=== PATIENT | male | born 1930 | race Caucasian/White ===

== ENCOUNTER 2017-12-17 12:35 | Inpatient (IN) | payer OTHER ==
[~2017-12-17] VITALS: Ht 175.3 cm; Wt 71.2 kg
--- NOTE | ~2017-12-17 | EKG ---
[address] [address] ELECTROCARDIOGRAM REPORT Name: ENE BUITRAGO Room #: 211-P ADM IN M.R.#: [id number] Admission: 12/18/17 Attend Phys: Zeb Jiménez MD Discharge: Date of : 31 Report #: [id number] THIS REPORT FOR: //name// [facility] Test Date: 2017-12-19 Test Time: 06:36:17 Pat Name: ENE BUITRAGO Department: Room: 211 P Gender: M Clearance Cutter: KEO : 1930 Requested By: Joshua Whiteside Order Number: [id number] MD: Joshua Whiteside Measurements Intervals [place] Rate: 91 P: 50 NE: 179 QRS: -85 QRSD: 126 T: 64 QT: 383 QTc: 472 Interpretive Statements Sinus rhythm RBBB and LAFB Baseline wander in lead(s) V2 Compared to ECG 10/23/2012 10:10:41 No significant change was found Electronically Signed On 12-19-2017 8:53:48 CDT by Joshua Whiteside [email or web address] <ELECTRONICALLY SIGNED> By: Joshua Whiteside MD, [facility] 12/19/17 0853 5 Joshua Whiteside MD, [facility] /EPI
--- NOTE | ~2017-12-17 | CATHLAB ---
[facility] [address] [place] [address] INVASIVE PROCEDURE REPORT Name: ENE BUITRAGO Room #: 211-P ADM IN ..#: [id number] Admission: 12/18/17 Attend Phys: Zeb Jiménez MD Discharge: Date of : 31 Date of Service: 12/18/17 1650 Report #: [id number] THIS REPORT FOR: //name// APPROVED REPORT Study performed: 12/18/2017 08:56:23 Patient Details Patient Status: In-Patient Room #: The patient is a 87 year-old male Event Personnel Joshua Whiteside Partner Marketing Manager, Herrera Manriquez RN, Mark Peters RN RN, Azra Diego Sandifer, David Monitor Procedures Performed Coronary Angiography Only [id number] CORANG BHARATHI Place w/wo Plasty Single ERNA [id number] Indication Non-STEMI (>12 hrs to = 24 hrs), Chest pain Procedure Narrative The Right Groin^ was infiltrated with 1% Lidocaine subcutaneous anesthesia. A PINNACLE 6FR Sheath #[id number] sheath was inserted into the RFA^. Coronary angiography was performed using coronary diagnostic catheters. The right coronary system was accessed and visualized with a JR4 catheter. The left coronary system was accessed and visualized with a 6FR JL 3.5 #[id number] catheter. Closure device was deployed with a 6 Fr MYNXGRIP 6/7F #[id number]. The patient tolerated the procedure well and there were no complications associated with the procedure. There was no hematoma. Intraoperative Conscious Sedation Sedation start time: 8.59 Case end Time: 9.52 Fentanyl 100 mcg Versed 3 mg Fluoro Time: 1344.00 minutes Dose: DAP 9552 cGycm2 1344 mGy Contrast Type and Amount: Visipaque 150 ml Coronary Angiography The patient's coronary anatomy is right dominant. [facility] [address] [place] [address] INVASIVE PROCEDURE REPORT Name: IFTIKHARENE Room #: 211-P ADM IN M.R.#: [id number] Admission: 12/18/17 Attend Phys: Zeb Jiménez MD Discharge: Date of : 31 Date of Service: 12/18/17 1650 Report #: [id number] Diagnostic Cath Left Main Normal left main LAD The LAD was not a particularly large vessel that extended to the distal anterior wall. Mild 30-40% mid vessel plaquing Diagonal 1 The first diagonal branch, which was larger than the LAD itself, exhibited a 30-40% proximal stenoses Circumflex The circumflex was moderate in size and nondominant OM1 The first marginal branch was moderate in size and exhibited a fairly long 50% mid vessel stenosis OM2 There was a terminal, second marginal branch that was very small in caliber, mild plaquing Right Coronary The right coronary was quite large and dominant. Mild distal plaquing R PDA The posterior descending was moderate in size with a 50% mid vessel stenosis RPLV The posterior lateral branch exhibited a long variable 75-90% stenosis Left Ventriculography Left Ventriculography was not performed. Hemodynamics The aortic pressure is 138/79 mmHg with a mean of 67 mmHg. PCI Technique Lesion Anticoagulation was achieved with Heparin, Integrilin. Patient was preloaded with Plavix. Percutaneous coronary intervention was performed on the mid posterolateral branch. The lesion stenosis prior to intervention was 95% with HARMONY 3 flow. A LAUNCHER 6FR JR 4 #[id number] Guide Catheter was used to engage the right coronary ostium. A Luge Wire .014 x 182CM #[id number] Interventional Guidewire was used to cross the lesion. BALLOON DILATION A Balloon catheter Euphora RX 2.0 x 15 #[id number] was inserted and inflated up to 14.00atm for 30seconds. Additional Inflation: 15.00atm for 33seconds. STENT DEPLOYMENT A drug-eluting stent RESOLUTE RX 2.5 X 26 #[id number] was inserted and inflated up to 14.00atm for 27seconds. Repeat angiography revealed the following post-stent deployment results: no residual stenosis. POST STENT DEPLOYMENT BALLOON DILATION [facility] [address] [place] [address] INVASIVE PROCEDURE REPORT Name: ENE BUITRAGO Room #: 211-P ADM IN .R.#: [id number] Admission: 12/18/17 Attend Phys: Zeb Jiménez MD Discharge: Date of : 31 Date of Service: 12/18/17 1650 Report #: [id number] A Balloon catheter TREK NC RX 2.5 X 15 #[id number] was inserted and inflated up to 15.00atm for 35seconds. Additional Inflation: 22.00atm for 25seconds. Final angiography reveals 0 % stenosis with HARMONY 3 flow. Conclusion 1. Normal left main 2. Mild to moderate LAD and circumflex disease 3. RCA dominant. Severe mid PL branch disease successfully stented with 2.5 x 26mm Resolute medicated stent Recommendations Daily ASA with Plavix for at least one year Cardiac Rehabilitation Referral [facility] <ELECTRONICALLY SIGNED> By: Joshua Whiteside MD, FAC 12/18/171649 49 49 Joshua Whiteside MD, FACC /INF
--- NOTE | ~2017-12-17 | EKG ---
[address] [place] [address] ELECTROCARDIOGRAM REPORT Name: ENE BUITRAGO Room #: 211-P ADM IN M.R.#: [id number] Admission: 12/18/17 Attend Phys: Zeb Jiménez MD Discharge: Date of : 31 Report #: [id number] THIS REPORT FOR: //name// [facility] Test Date: 2017-12-18 Test Time: 12:06:06 Pat Name: ENE BUITRAGO Department: Room: 451 P Gender: M Doctorate Of Chiropractic: Kamini CALDERON : 1930 Requested By: Joshua Whiteside Order Number: [id number] MD: Joshua Whiteside Measurements Intervals [place] Rate: 79 P: 63 ND: 175 QRS: -83 QRSD: 125 T: 35 QT: 399 QTc: 458 Interpretive Statements Sinus rhythm RBBB and LAFB Compared to ECG 10/23/2012 10:10:41 No significant change was found Electronically Signed On 12-19-2017 8:46:38 CDT by Joshua Whiteside [email or web address] <ELECTRONICALLY SIGNED> By: Joshua Whiteside MD, [facility] 12/19/17 0846 1206 120 Joshua Whiteside MD, [facility] /EPI
--- NOTE | ~2017-12-17 | EKG ---
[address] [place] [address] ELECTROCARDIOGRAM REPORT Name: ENE BUITRAGO Room #: 211-P ADM IN M.R.#: [id number] Admission: 12/18/17 Attend Phys: Zeb Jiménez MD Discharge: Date of : 31 Report #: [id number] THIS REPORT FOR: //name// [facility] ED Test Date: 2017-12-17 Test Time: 12:37:24 Pat Name: ENE BUITRAGO Department: Room: Gender: M Adoption Coordinator: HUSSEIN : 1930 Requested By: Maurice Ovalle Order Number: [id number] MD: Joshua Whiteside Measurements Intervals [place] Rate: 88 P: 38 CO: 158 QRS: -101 QRSD: 124 T: 23 QT: 376 QTc: 455 Interpretive Statements Sinus rhythm RBBB and LAFB Compared to ECG 10/23/2012 10:10:41 No significant change was found Electronically Signed On 12-19-2017 8:27:53 CDT by Joshua Whiteside [email or web address] <ELECTRONICALLY SIGNED> By: Joshua Whiteside MD, [facility] 12/19/17 0827 D: 07/1236 123 Joshua Whiteside MD, FACC /EPI
[~2017-12-17 12:35] MED LIST: ACETAMINOPHEN325 M1 PO; AMARYL2 MG PO; ASPIRIN EC81 M1 PO; AUGMENTIN 875875 MG PO; CARVEDILOL3.125 MG PO; CIPROFLOXACIN500 M1 PO; CRESTOR10 MG PO; FISH OIL + D31 EACH PO; JANUVIA100 MG PO; JANUVIA25 MG PO; KEFLEX500 MG PO; LIPITOR; LISINOPRIL5 MG PO; MAGNESIUM400 MG PO; NITROGLYCERIN0.4 MG SL; NORCO 5-325 TA1 EACH PO; PLAVIX 75 MG TA75 M1 PO; RAPAFLO4 MG PO; RAPAFLO8 MG PO; ZEGERID 20 MG1 EACH PO; [UNRECOGNIZED DRUG - OTHER]
[2017-12-17 12:39] VITALS: BP 122/73
[2017-12-17 13:00] LABS: ABSOLUTE NEUTROPHILS 4.6 thou/uL (1.4-8.2); BASOPHILS 0.6 % (0.0-2.0); HEMATOCRIT 42.4 % (42.0-52.0); HEMOGLOBIN 14.4 gm/dL (14.0-18.0); LYMPHOCYTES 27.4 % (24.0-44.0); MCH 29.5 pg (26.0-34.0); MCV 86.7 fL (80.0-100.0); MONOCYTES 8.8 % (1.0-8.0); PLATELET COUNT 156 thou/uL (150-400); POLYS 60.2 % (36.0-66.0); RDW 15.3 % (10.5-14.5); WBC 7.6 thou/uL (4.0-11.0)
[2017-12-17 13:04] LABS: ANION GAP 10 mmol/L (7-16); BUN 31 mg/dL (7-18); CHLORIDE 104 mmol/L (98-107); CO2 26 mmol/L (21-32); GLUCOSE 181 mg/dL (74-106); POTASSIUM 4.2 mmol/L (3.5-5.1); SODIUM 140 mmol/L (136-145)
[2017-12-17 13:14] LABS: TROPONIN-I <0.06 ng/mL (<0.06)
[2017-12-17 15:03] VITALS: BP 154/78
[2017-12-17 15:42] VITALS: BP 145/83
[2017-12-17 19:44] VITALS: BP 154/83
[2017-12-18] VITALS (8 sets, daily range): BP systolic 105–138; BP diastolic 57–83
[2017-12-18 06:23] LABS: CALCIUM 9.2 mg/dL (8.5-10.1); CREATININE 1.8 mg/dL (0.7-1.3); MAGNESIUM 1.8 mg/dL (1.8-2.4); POTASSIUM 4.2 mmol/L (3.5-5.1)
[2017-12-18 06:30] LABS: TROPONIN-I 7.06 ng/mL (<0.06)
[2017-12-18 07:28] LABS: CHOLESTEROL 273 mg/dL (<200); HDL CHOLESTEROL 39 mg/dL (>40); LDL CHOLESTEROL 171 mg/dL (<100); TRIGLYCERIDE 316 mg/dL (<150); VLDL 63 mg/dL (<40)
[2017-12-18] MEDS ORDERED: CLOPIDOGREL75 MG PO (16:50)
[2017-12-19 04:01] LABS: HEMATOCRIT 42.3 % (42.0-52.0); HEMOGLOBIN 14.2 gm/dL (14.0-18.0); MCH 28.9 pg (26.0-34.0); MCHC 33.5 g/dL (28.0-37.0); MCV 86.2 fL (80.0-100.0); RBC 4.91 mil/uL (4.50-6.00); RDW 15.9 % (10.5-14.5); WBC 8.2 thou/uL (4.0-11.0)
[2017-12-19 04:05] LABS: ALBUMIN 3.4 g/dL (3.4-5.0); CREATININE 1.8 mg/dL (0.7-1.3); POTASSIUM 3.8 mmol/L (3.5-5.1); TOTAL BILIRUBIN 1.3 mg/dL (<0.1-1.0); TOTAL PROTEIN 6.8 g/dL (6.4-8.2)
[2017-12-19 04:29] LABS: TROPONIN-I 5.84 ng/mL (<0.06)
[2017-12-19 04:43] VITALS: BP 132/56
[2017-12-19 08:04] VITALS: BP 137/76
[2017-12-19 11:24] VITALS: BP 112/76
[2017-12-19 12:17] VITALS: BP 137/76
[2017-12-19] MEDS ORDERED: METOPROLOL SUCC25 M1 PO (12:30)
[2017-12-19] MEDS ORDERED: NITROGLYCERIN0.4 MG SUBLING (12:31)
[2017-12-19 14:48] VITALS: BP 137/76
== END 2017-12-19 14:15 | disposition home health service (06) | DRG 246 ==
LOC: ER 12:35 → EROBS 13:57 → 4W 15:21 → 2N 12-18 08:00 → ENTRNSPT 12-19 14:10 → EDTRNSPTSTS 12-19 14:12 → 2N 12-19 14:15
PROVIDERS: Emergency Medicine; Internal Medicine; Nurse Practitioner
PROC: 027034Z Dilation of Coronary Artery, One Artery with Drug-eluting Intraluminal Device, Percutaneous Approach (ICD-10-PCS; principal; 2017-12-18)
PROC: B211YZZ Fluoroscopy of Multiple Coronary Arteries using Other Contrast (ICD-10-PCS; principal; 2017-12-18)
PROC: 4A023N7 Measurement of Cardiac Sampling and Pressure, Left Heart, Percutaneous Approach (ICD-10-PCS; principal; 2017-12-18)
DX: I21.4 Non-ST elevation (NSTEMI) myocardial infarction (principal); E43 Unspecified severe protein-calorie malnutrition; E78.00 Pure hypercholesterolemia, unspecified; G89.29 Other chronic pain; M54.9 Dorsalgia, unspecified; K21.9 Gastro-esophageal reflux disease without esophagitis; M54.10 Radiculopathy, site unspecified; E78.5 Hyperlipidemia, unspecified; N18.9 Chronic kidney disease, unspecified; R63.4 Abnormal weight loss; I12.9 Hypertensive chronic kidney disease with stage 1 through stage 4 chronic kidney disease, or unspecified chronic kidney disease; N40.0 Benign prostatic hyperplasia without lower urinary tract symptoms; M62.84 Sarcopenia; F32.9 Major depressive disorder, single episode, unspecified; E11.22 Type 2 diabetes mellitus with diabetic chronic kidney disease; I20.9 Angina pectoris, unspecified; Z79.82 Long term (current) use of aspirin; Z79.899 Other long term (current) drug therapy; Z68.23 Body mass index [BMI] 23.0-23.9, adult; Z88.8 Allergy status to other drugs, medicaments and biological substances; Z98.49 Cataract extraction status, unspecified eye; Z87.891 Personal history of nicotine dependence
CPT/HCPCS: 10081

== ENCOUNTER → 2018-04-16 | Outpatient (CLI) | payer OTHER ==
[~2018-04-16] MED LIST changes: +CLOPIDOGREL75 MG PO; +METOPROLOL SUCC25 M1 PO; +NITROGLYCERIN0.4 MG SUBLING
== END ==
LOC: CAT 14:04 → MRI 14:04
DX: R42 Dizziness and giddiness (principal); R51 Headache

== ENCOUNTER 2018-11-30 15:00 | Inpatient (IN) | payer OTHER ==
[~2018-11-30] VITALS: Ht 175.3 cm; Wt 77.6 kg
[~2018-11-30 15:00] MED LIST changes: +JANUVIA 50 MG T50 MG PO; -JANUVIA100 MG PO
[2018-11-30 15:04] VITALS: BP 160/80
[2018-11-30 15:38] LABS: ABSOLUTE NEUTROPHILS 3.6 thou/uL (1.4-8.2); BASOPHILS 0.4 % (0.0-2.0); EOSINOPHILS 2.1 % (0.0-3.0); HEMOGLOBIN 14.3 gm/dL (14.0-18.0); LYMPHOCYTES 21.3 % (24.0-44.0); MCH 28.4 pg (26.0-34.0); MCHC 33.3 g/dL (28.0-37.0); MCV 85.4 fL (80.0-100.0); MONOCYTES 7.1 % (1.0-8.0); PLATELET COUNT 134 thou/uL (150-400); POLYS 69.1 % (36.0-66.0); RBC 5.04 mil/uL (4.50-6.00); RDW 14.8 % (10.5-14.5); WBC 5.2 thou/uL (4.0-11.0)
[2018-11-30 15:47] LABS: ANION GAP 13 mmol/L (7-16); BUN 19 mg/dL (7-18); CHLORIDE 104 mmol/L (98-107); CO2 22 mmol/L (21-32); CREATININE 1.9 mg/dL (0.7-1.3); GLUCOSE 231 mg/dL (74-106); SODIUM 139 mmol/L (136-145)
[2018-11-30 15:57] LABS: ALBUMIN 3.6 g/dL (3.4-5.0); LIPASE 101 U/L (73-393); SGOT 13 U/L (15-37); SGPT 16 U/L (30-65); TOTAL BILIRUBIN 0.8 mg/dL (<0.1-1.0); TOTAL PROTEIN 6.9 g/dL (6.4-8.2); TROPONIN-I <0.06 ng/mL (<0.06)
[2018-11-30 16:56] LABS: URINE BILIRUBIN NEGATIVE (Negative); URINE BLOOD NEGATIVE (Negative); URINE CLARITY CLEAR; URINE COLOR YELLOW; URINE GLUCOSE-RANDOM* 1+ (Negative); URINE KETONES NEGATIVE (Negative); URINE LEUKOCYTES-REFLEX NEGATIVE (Negative); URINE NITRITE-REFLEX NEGATIVE (Negative); URINE PROTEIN (DIPSTICK) 2+ (Negative); URINE UROBILINOGEN 0.2 E.U./dl (0.2-1.0)
[2018-11-30 17:06] LABS: CASTS None Seen /LPF (None Seen); CRYSTALS None Seen /LPF (None Seen); SQUAMOUS None Seen /LPF (0-3); URINE WBC-REFLEX 0-5 Rare /HPF (0-5)
[2018-11-30 17:07] LABS: BACTERIA-REFLEX 1-9 Few /HPF (None Seen); URINE RBC None Seen /HPF (0-2)
[2018-11-30 18:04] VITALS: BP 160/85
--- NOTE | 2018-11-30 19:39 | NUR ---
88 YO MALE ADMITTED TO 430 BY CART FROM ER. A&OX4, IV INFUSING NS IN L HAND. SPOUSE AT BEDSIDE. ORIENTED PT TO ROOM CALL LIGHT.
[2018-11-30] MEDS ORDERED: SERTRALINE HCL50 MG PO (20:48)
[2018-11-30] MEDS ORDERED: REPATHA PU420 MG/3.5 SUBQ (20:50)
[2018-11-30] MEDS ORDERED: ARICEPT 5 MG TAB5 MG PO (20:51)
[2018-11-30 21:20] VITALS: BP 148/86
[2018-12-01 04:45] VITALS: BP 150/66
--- NOTE | 2018-12-01 04:51 | NUR ---
ASSUMED CARE AT 1900, PT HAD ARRIVED TO UNIT AROUND 1830, COMPLETED ADMISSION AND ASSESSMENT; CONSENTS SIGNED, REVIEWED MEDICATIONS WITH PT'S BEFORE SHE LEFT. SHE REPORTS HE HAS NOT TAKEN ANY OF HIS MEDICATIONS IN FOUR DAYS, NO CLEAR REASON GIVEN OTHER THAN PT "DIDN'T WANT TO." SHE REPORTS MAKING HIM TAKE HIS JANUVIA IN THE AM, BUT OTHERWISE NO MEDS FOR FOUR DAYS. PT IS A&Ox3 AND FORGETFUL, HISTORY OF DEMENTIA, STRUGGLES TO REMEMBER NAMES OF MEDICATIONS, MEDICAL HISTORY, ETC; HAS ANXIOUS PERSONALITY. SKIN IN GOOD CONDITION. PT REPORTS HAVING AN IMPLANTED NEUROSTIMULATOR IN LEFT BACK. DENIES PAIN OR SOB. PRIMARY COMPLAINT IS FEELING VERY DIZZY, WORSE WITH STANDING, AND VISIBLY WEAVES WHEN STANDING AT BEDSIDE TO USE URINAL; HAD N/V AT HOME WITH THE SEVERE DIZZINESS, BUT DENIES NAUSEA HERE. HAS FREQUENCY AND HESITATION WITH URINATION, GOES ABOUT 150-200 ML EACH TIME. FALL PRECAUTIONS IN PLACE. IV FLUIDS INFUSING. GIVEN A DOSE OF MECLIZINE FOR THE DIZZINESS, OBTAINED ORDER FOR MELATONIN TO HELP PT SLEEP; HE REPORTS TAKING AMBIEN AT HOME, BUT THERE IS NO RECORD OF HIM HAVING A PRESCRIPTION FOR THIS. NO OTHER CONCERNS, WILL CONTINUE TO MONITOR.
[2018-12-01 07:11] VITALS: BP 146/66
--- NOTE | 2018-12-01 12:31 | NUR ---
ASSESSMENT-PT LIVES AT HOME WITH HIS WHO IS YOUNGER THAN HE BUT USES A CANE OR A WALKER TO GET AROUND. 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 THEY HAVE A CLEANING PERSON THAT COMES 1-2X WEEKLY AND ALSO DOES THE LAUNDRY. PT DRIVES. THEY HAVE 2 SONS IN THE AREA AND A DTR IN [place]. HAS HAD VNA IN THE PAST BUT HE DENIES ANY HH SERVICES. FOLLOWING TO ASSIST WITH DC PLANNING.
--- NOTE | 2018-12-01 12:52 | EKG ---
[address] [place] [address] ELECTROCARDIOGRAM REPORT Name: ENE BUITRAGO Room #: 430-P ADM IN M.R.#: [id number] ������������������ Admission: 11/30/18 ������������������ Attend Phys: Dragan Clarke MD Discharge: ������������������ Date of : 31 Report #: [id number] ����������������������������������������������������������������� [id number] THIS REPORT FOR: //name// [facility] ED Test Date: 2018-11-30 Test Time: 15:27:40 Pat Name: ENE BUITRAGO Department: Room: 430 Gender: M Ironer Hand: ale : 1930 Requested By: Kandace Romano Order Number: [id number] MD: Joshua Whiteside Measurements Intervals [place] Rate: 72 P: 43 IN: 184 QRS: -68 QRSD: 133 T: 10 QT: 431 QTc: 472 Interpretive Statements Sinus rhythm RBBB and LAFB Compared to ECG 12/19/2017 06:36:17 No significant changes Electronically Signed On 12-01-2018 12:52:08 CDT by Joshua Whiteside [email or web address] ��������������������������������������������� <ELECTRONICALLY SIGNED> ���������������������������������������� By: Joshua Whiteside MD, [facility] ��������������������������������������������� 12/01/18 1252 1527 1527 Joshua Whiteside MD, FACC /EPI
[2018-12-01] MEDS ORDERED: FLOMAX0.4 MG PO (14:55)
--- NOTE | 2018-12-01 15:34 | NUR ---
PT A&OX4, AMBULATES WITH ASSIST X1 AND WALKER. PT HAD VERTIGO THIS AM AND PT WORKED WITH PT TO RELEIVE SYMPTOMS. CALLS OUT APPROP, BED AND CHAIR ALARMS ON AT ALL TIMES.WILL CONT POC.
[2018-12-01 15:59] VITALS: BP 106/50
[2018-12-01 19:42] VITALS: BP 117/56
--- NOTE | 2018-12-02 04:29 | NUR ---
PT ALERT/ORIENTED X4, UP WITH ASSIST X1, GAIT A LITTLE UNSTEADY, STILL HIGH FALL RISK DUE TO VERTIGO WHICH HE DENIES ALL NOC, CONTINUE ON MECLIZINE, SKIN INTACT, IVF INFUSING, IV PATENT, MONITORED, BED ALARM ON, FALL BUNDLE ON, MONITORED.
[2018-12-02 04:40] VITALS: BP 126/50
[2018-12-02 05:36] LABS: CALCIUM 8.8 mg/dL (8.5-10.1); CREATININE 2.1 mg/dL (0.7-1.3); MAGNESIUM 1.8 mg/dL (1.8-2.4); POTASSIUM 3.9 mmol/L (3.5-5.1)
[2018-12-02 09:42] VITALS: BP 133/70
--- NOTE | 2018-12-02 10:25 | NUR ---
PT UP WALKING WITH THERAPY STEADY GAIT. NO DIZZINESS NOTED. PT STATES NO PAIN. PT ATE GOOD BREAKFAST. PLEASANT AND COOPERATIVE WITH CARE, POSSIBLE DISCHARGE TODAY.
[2018-12-02 10:38] VITALS: BP 133/70
--- NOTE | 2018-12-02 11:54 | NUR ---
Pt dcing home today via family car. Outpt vestibular therapy recommended and the pt would like to do that here. Referral called to the outpt therapy dept and facesheet and script faxed. They will try to call him to schedule his eval or he may call them to schedule. No other cm interventions indicated.
[2018-12-02 12:02] VITALS: BP 133/70
--- NOTE | 2018-12-02 12:13 | NUR ---
PATIENT TO DISCHARGE TODAY IV ACSESS DCD. ALL BELONGINGS TO BE PACKED AND SENT WITH PATIENT.
[2018-12-02] MEDS ORDERED: MELATONIN5 M1 PO (12:26)
[2018-12-02] MEDS ORDERED: ANTIVERT25 MG PO (12:26)
[2018-12-02 12:42] VITALS: BP 133/70
[2018-12-02 13:50] VITALS: BP 133/70
--- NOTE | 2018-12-02 13:51 | NUR ---
PATIENT DISCHARGED VIA W/C TO FAMILY CAR. DISCHARGE PAPERS GONE OVER SIGNED, COPY IN CHART. SPOUSE AND FAMILY HERE MALE FAMILY MEMBER PACING MACIAS. STATED DOCTOR CALLED 2 HOURS AGO SAID HE WAS DISCHARGING EXPLAINED DOCTOR HAD TO PUT ORDERS IN CHART AND WRITE RX'S. ALSO WAITING ON VOLUNTEER TO TRANSPORT TO MAIN ENTRANCE.
== END 2018-12-02 13:45 | disposition home or self-care (01) | DRG 149 ==
LOC: ER 15:00 → 4E 17:58 → EROBS 17:58 → 4E 18:01 → ENTRNSPT 12-02 13:36 → EDTRNSPTSTS 12-02 13:38 → 4E 12-02 13:45
PROVIDERS: Physician Assistant; ADMIT Internal Medicine
DX: R42 Dizziness and giddiness (principal); E78.5 Hyperlipidemia, unspecified; K21.9 Gastro-esophageal reflux disease without esophagitis; M54.5 Low back pain; G89.29 Other chronic pain; N18.9 Chronic kidney disease, unspecified; N40.0 Benign prostatic hyperplasia without lower urinary tract symptoms; F32.9 Major depressive disorder, single episode, unspecified; I12.9 Hypertensive chronic kidney disease with stage 1 through stage 4 chronic kidney disease, or unspecified chronic kidney disease; E11.9 Type 2 diabetes mellitus without complications; E86.0 Dehydration; F03.90 Unspecified dementia, unspecified severity, without behavioral disturbance, psychotic disturbance, mood disturbance, and anxiety; Z96.652 Presence of left artificial knee joint; Z98.42 Cataract extraction status, left eye; Z98.41 Cataract extraction status, right eye; Z79.02 Long term (current) use of antithrombotics/antiplatelets; Z79.82 Long term (current) use of aspirin; Z79.899 Other long term (current) drug therapy; Z88.8 Allergy status to other drugs, medicaments and biological substances; I25.2 Old myocardial infarction
CPT/HCPCS: 10084

== ENCOUNTER 2019-04-30 04:06 | Emergency (ER) | payer OTHER ==
[~2019-04-30] VITALS: Ht 170.2 cm; Wt 77.1 kg
[~2019-04-30 04:06] MED LIST changes: +ANTIVERT25 MG PO; +ARICEPT 5 MG TAB5 MG PO; +FLOMAX0.4 MG PO; +MELATONIN5 M1 PO; +REPATHA PU420 MG/3.5 SUBQ; +SERTRALINE HCL50 MG PO
[2019-04-30 04:43] LABS: ABSOLUTE NEUTROPHILS 4.8 thou/uL (1.4-8.2); BASOPHILS 0.5 % (0.0-2.0); EOSINOPHILS 5.6 % (0.0-3.0); HEMATOCRIT 45.5 % (42.0-52.0); HEMOGLOBIN 15.2 gm/dL (14.0-18.0); LYMPHOCYTES 12.7 % (24.0-44.0); MCH 28.6 pg (26.0-34.0); MCHC 33.5 g/dL (28.0-37.0); MCV 85.5 fL (80.0-100.0); MONOCYTES 10.3 % (1.0-8.0); PLATELET COUNT 96 thou/uL (150-400); POLYS 70.9 % (36.0-66.0); RBC 5.33 mil/uL (4.50-6.00); RDW 15.3 % (10.5-14.5); WBC 6.7 thou/uL (4.0-11.0)
[2019-04-30 04:52] LABS: ANION GAP 13 mmol/L (7-16); BUN 22 mg/dL (7-18); CALCIUM 9.3 mg/dL (8.5-10.1); CHLORIDE 96 mmol/L (98-107); CO2 22 mmol/L (21-32); CREATININE 1.9 mg/dL (0.7-1.3); GLUCOSE 174 mg/dL (74-106); POTASSIUM 4.1 mmol/L (3.5-5.1); SODIUM 131 mmol/L (136-145)
[2019-04-30 05:01] LABS: MAGNESIUM 1.8 mg/dL (1.8-2.4); TROPONIN-I <0.06 ng/mL (<0.06)
[2019-04-30 05:02] LABS: URINE BILIRUBIN NEGATIVE (Negative); URINE BLOOD TRACE (Negative); URINE CLARITY CLEAR; URINE COLOR YELLOW; URINE GLUCOSE-RANDOM* NEGATIVE (Negative); URINE KETONES NEGATIVE (Negative); URINE LEUKOCYTES-REFLEX NEGATIVE (Negative); URINE NITRITE-REFLEX NEGATIVE (Negative); URINE PROTEIN (DIPSTICK) 2+ (Negative); URINE SPECIFIC GRAVITY >= 1.030 (1.005-1.035)
[2019-04-30 05:21] LABS: BACTERIA-REFLEX 1-9 Few /HPF (None Seen); CELLULAR CASTS 0-3 Few /LPF (None Seen); CRYSTALS None Seen /LPF (None Seen); HYALINE CASTS 0-3 Few /LPF (None Seen); MUCUS 4-6 Moderate strn/LPF (None Seen); SQUAMOUS 0-3 Few /LPF (0-3); URINE RBC 0-2 Rare /HPF (0-2); URINE WBC-REFLEX 0-5 Rare /HPF (0-5)
[2019-04-30 07:09] VITALS: BP 114/53
--- NOTE | 2019-04-30 13:07 | EKG ---
[place] [address] [facility] [address] [place] [address] ELECTROCARDIOGRAM REPORT Name: ENE BUITRAGO Room #: DEP GIACOMO Barone#: [id number] Admission: 04/30/19 Attend Phys: Discharge: 04/30/19 Date of : 31 Report #: [id number] THIS REPORT FOR: //name// [facility] ED Test Date: 2019-04-30 Test Time: 04:20:43 Pat Name: ENE BUITRAGO Department: Room: Gender: Lawyer Real Estate: STOLED : 1930 Requested By: Maurice Mayorga Order Number: [id number] MD: Joshua Whiteside Measurements Intervals [place] Rate: 102 P: 42 MD: 177 QRS: -83 QRSD: 123 T: 46 QT: 356 QTc: 464 Interpretive Statements Sinus tachycardia Right bundle branch block Inferior infarct, old Compared to ECG 11/30/2018 15:27:40 No significant change was found Electronically Signed On 04-30-2019 13:06:51 COUNTY CORONER by Joshua Whiteside [email or web address] <ELECTRONICALLY SIGNED> By: Joshua Whiteside MD, [facility] 04/30/19 1306 0420 0420 Joshua Whiteside MD, FACC /EPI
== END 2019-04-30 07:10 | disposition home or self-care (01) ==
LOC: ER 04:06
PROVIDERS: Emergency Medicine
DX: R41.0 Disorientation, unspecified (principal); E78.5 Hyperlipidemia, unspecified; K21.9 Gastro-esophageal reflux disease without esophagitis; E11.9 Type 2 diabetes mellitus without complications; G89.29 Other chronic pain; Z88.8 Allergy status to other drugs, medicaments and biological substances; Z79.899 Other long term (current) drug therapy; Z98.890 Other specified postprocedural states; Z96.652 Presence of left artificial knee joint

== ENCOUNTER 2019-06-06 17:31 | Emergency (ER) | payer OTHER ==
[~2019-06-06] VITALS: Ht 175.3 cm; Wt 72.6 kg
[2019-06-06 18:00] LABS: ABSOLUTE NEUTROPHILS 3.8 thou/uL (1.4-8.2); BASOPHILS 0.6 % (0.0-2.0); EOSINOPHILS 3.1 % (0.0-3.0); HEMATOCRIT 41.3 % (42.0-52.0); HEMOGLOBIN 13.6 gm/dL (14.0-18.0); LYMPHOCYTES 29.3 % (24.0-44.0); MCH 28.4 pg (26.0-34.0); MCHC 33.1 g/dL (28.0-37.0); MCV 85.8 fL (80.0-100.0); MONOCYTES 9.3 % (1.0-8.0); PLATELET COUNT 167 thou/uL (150-400); POLYS 57.7 % (36.0-66.0); RBC 4.81 mil/uL (4.50-6.00); RDW 16.4 % (10.5-14.5); WBC 6.6 thou/uL (4.0-11.0)
[2019-06-06 18:16] LABS: ANION GAP 14 mmol/L (7-16); BUN 25 mg/dL (7-18); CALCIUM 9.8 mg/dL (8.5-10.1); CHLORIDE 106 mmol/L (98-107); CO2 22 mmol/L (21-32); GLUCOSE 143 mg/dL (74-106); POTASSIUM 4.1 mmol/L (3.5-5.1); SODIUM 142 mmol/L (136-145)
[2019-06-06 18:25] LABS: ALBUMIN 3.7 g/dL (3.4-5.0); DIRECT BILIRUBIN 0.1 mg/dL (<0.1-0.2); TOTAL BILIRUBIN 0.9 mg/dL (<0.1-1.0); TOTAL PROTEIN 7.3 g/dL (6.4-8.2); TROPONIN-I <0.06 ng/mL (<0.06)
[2019-06-06 18:36] LABS: SGPT 19 U/L (30-65)
[2019-06-06 18:57] LABS: SGOT < 5 U/L (15-37)
[2019-06-06 19:19] VITALS: BP 132/79
--- NOTE | 2019-06-07 10:18 | EKG ---
[facility] [address] [facility] [place] [address] ELECTROCARDIOGRAM REPORT Name: ENE BUITRAGO Room #: DEP GIACOMO Barone#: [id number] Admission: 06/06/19 Attend Phys: Discharge: 06/06/19 Date of : 31 Report #: [id number] THIS REPORT FOR: //name// [facility] ED Test Date: 2019-06-06 Test Time: 17:29:11 Pat Name: ENE BUITRAGO Department: Room: Gender: Certified Master Safe Technician[facility] 1930 Requested By: Maria Elena Su Order Number: [id number] MD: Joshua Whiteside Measurements Intervals [place] Rate: 80 P: 70 RI: 168 QRS: -74 QRSD: 129 T: 45 QT: 404 QTc: 466 Interpretive Statements Sinus rhythm RBBB and LAFB Compared to ECG 04/30/2019 04:20:43 No significant change was found Electronically Signed On 06-07-2019 10:17:47 SHEET METAL MECHANIC by Joshua Whiteside [email or web address] <ELECTRONICALLY SIGNED> By: Joshua Whiteside MD, [facility] 06/07/19 1017 1729 1729 Joshua Whiteside MD, FACC /EPI
== END 2019-06-06 19:23 | disposition home or self-care (01) ==
LOC: ER 17:31
PROVIDERS: Emergency Medicine
DX: R07.9 Chest pain, unspecified (principal); I25.10 Atherosclerotic heart disease of native coronary artery without angina pectoris; E11.22 Type 2 diabetes mellitus with diabetic chronic kidney disease; E78.5 Hyperlipidemia, unspecified; K21.9 Gastro-esophageal reflux disease without esophagitis; N18.9 Chronic kidney disease, unspecified; F03.90 Unspecified dementia, unspecified severity, without behavioral disturbance, psychotic disturbance, mood disturbance, and anxiety; Z96.652 Presence of left artificial knee joint; Z95.5 Presence of coronary angioplasty implant and graft; Z88.8 Allergy status to other drugs, medicaments and biological substances

== ENCOUNTER 2019-11-28 20:11 | Emergency (ER) | payer OTHER ==
[~2019-11-28] VITALS: Ht 175.3 cm; Wt 68.0 kg
[2019-11-28] MEDS ORDERED: SENNA-DOCUSATE1 EAC1 PO (21:54)
[2019-11-28 22:28] VITALS: BP 140/59
== END 2019-11-28 22:29 | disposition home or self-care (01) ==
LOC: ER 20:11
DX: K59.00 Constipation, unspecified (principal); K21.9 Gastro-esophageal reflux disease without esophagitis; E78.5 Hyperlipidemia, unspecified; E11.9 Type 2 diabetes mellitus without complications; G89.29 Other chronic pain; M54.9 Dorsalgia, unspecified; Z79.01 Long term (current) use of anticoagulants; Z79.899 Other long term (current) drug therapy; Z88.8 Allergy status to other drugs, medicaments and biological substances

== ENCOUNTER → 2020-01-20 | Outpatient (CLI) | payer OTHER ==
[~2020-01-20] MED LIST changes: +SENNA-DOCUSATE1 EAC1 PO
== END ==
LOC: SJCVC 13:40
PROVIDERS: ATTEND Internal Medicine
DX: R94.31 Abnormal electrocardiogram [ECG] [EKG] (principal); I45.10 Unspecified right bundle-branch block; I25.10 Atherosclerotic heart disease of native coronary artery without angina pectoris; E78.5 Hyperlipidemia, unspecified; E11.22 Type 2 diabetes mellitus with diabetic chronic kidney disease; I12.9 Hypertensive chronic kidney disease with stage 1 through stage 4 chronic kidney disease, or unspecified chronic kidney disease; N18.3 Chronic kidney disease, stage 3 (moderate)

== ENCOUNTER 2020-07-07 19:34 | Inpatient (IN) | payer OTHER ==
[~2020-07-07] VITALS: Ht 175.3 cm; Wt 72.6 kg
--- NOTE | ~2020-07-07 | EKG ---
[address] [address] ELECTROCARDIOGRAM REPORT Name: ENE BUITRAGO Room #: 201-P ADM IN M.R.#: [id number] Admission: 07/07/20 Attend Phys: Kirk Quinn MD Discharge: Date of : 31 Report #: [id number] [facility] Test Date: 2020-07-08 Test Time: 04:47:05 Pat Name: ENE BUITRAGO Department: Room: 201 P Gender: M Tank Shop Supervisor: DICK : 1930 Requested By: Kirk Quinn Order Number: [id number] MD: Measurements Intervals [place] Rate: 0 P: 0 CA: QRS: 0 QRSD: T: QT: QTc: 0 Interpretive Statements All 12 leads are missing Compared to ECG 07/08/2020 04:45:51 Sinus rhythm no longer present Left anterior fascicular block no longer present Right bundle-branch block no longer present [email or web address] By: 6 0447 Ep[facility]any [facility], /EPI
[2020-07-07 19:34] VITALS: BP 117/51
[2020-07-07 20:05] LABS: ABSOLUTE NEUTROPHILS 3.9 thou/uL (1.4-8.2); BASOPHILS 0.7 % (0.0-2.0); EOSINOPHILS 1.9 % (0.0-3.0); HEMATOCRIT 41.7 % (42.0-52.0); HEMOGLOBIN 13.9 gm/dL (14.0-18.0); LYMPHOCYTES 38.2 % (24.0-44.0); MCHC 33.4 g/dL (28.0-37.0); MCV 86.8 fL (80.0-100.0); MONOCYTES 8.1 % (1.0-8.0); PLATELET COUNT 149 thou/uL (150-400); POLYS 51.1 % (36.0-66.0); RBC 4.81 mil/uL (4.50-6.00); RDW 15.7 % (10.5-14.5); WBC 7.6 thou/uL (4.0-11.0)
[2020-07-07 20:20] LABS: ANION GAP 12 mmol/L (7-16); APTT 24.4 Seconds (24.5-32.8); BUN 22 mg/dL (7-18); CALCIUM 9.1 mg/dL (8.5-10.1); CHLORIDE 104 mmol/L (98-107); CO2 23 mmol/L (21-32); GLUCOSE 225 mg/dL (74-106); POTASSIUM 3.8 mmol/L (3.5-5.1); PROTIME 10.7 Seconds (9.3-11.4); SODIUM 139 mmol/L (136-145)
[2020-07-07 20:30] LABS: ALBUMIN 3.6 g/dL (3.4-5.0); LIPASE 118 U/L (73-393); TOTAL BILIRUBIN 0.7 mg/dL (0.2-1.0); TOTAL PROTEIN 6.5 g/dL (6.4-8.2); TROPONIN-I <0.06 ng/mL (<0.06)
[2020-07-07 20:45] LABS: SGPT 17 U/L (16-63)
[2020-07-07 20:46] LABS: SGOT 7 U/L (15-37)
[2020-07-07 21:43] VITALS: BP 111/60
[2020-07-07 21:59] VITALS: BP 105/82
--- NOTE | 2020-07-07 22:26 | NUR ---
PT COMPLAINS OF CHEST PAIN. AND BACK PAIN. PLESANT ORINTED TO SELF AND SITUATION . HISTORY OF DEMENTIA CONFUSED ON TIME WITH HISTORY AND ASSESSMENT. PLACED ON THE MONITOR. VS STABLE. LUNGS ARE CLEAR ON ROOM AIR. ABDOMEN IS SOFT BOWEL SOUNDS ACTIVE. PT COMPLAINS OF GENERALZIED WEAKNESS HE REPORTS. HEPARIN DRIP INFUSING FROM EMERGENCY ROOM UPON ARIVAL. CALL LIGHT WITHIN REACH IF NEEDS ASSISTANCE PER NURSING.
[2020-07-07 22:35] VITALS: BP 112/57
[2020-07-08] VITALS (13 sets, daily range): BP systolic 102–156; BP diastolic 55–77
[2020-07-08 04:15] LABS: HEMATOCRIT 44.4 % (42.0-52.0); HEMOGLOBIN 14.5 gm/dL (14.0-18.0); MCH 28.6 pg (26.0-34.0); MCHC 32.6 g/dL (28.0-37.0); MCV 87.7 fL (80.0-100.0); RBC 5.07 mil/uL (4.50-6.00); RDW 15.7 % (10.5-14.5); WBC 6.9 thou/uL (4.0-11.0)
[2020-07-08 04:36] LABS: CALCIUM 9.3 mg/dL (8.5-10.1); CREATININE 2.2 mg/dL (0.7-1.3); MAGNESIUM 2.1 mg/dL (1.8-2.4)
[2020-07-08 04:38] LABS: POTASSIUM 5.3 mmol/L (3.5-5.1)
[2020-07-08 04:42] LABS: CHOLESTEROL 251 mg/dL (<200); HDL CHOLESTEROL 37 mg/dL (>40); LDL CHOLESTEROL 153 mg/dL (<100); TC:HDL 6.8 Ratio (Not establshd); TRIGLYCERIDE 309 mg/dL (<150); VLDL 62 mg/dL (<40)
[2020-07-08 04:45] LABS: SERUM ASSESSMENT Clear
--- NOTE | 2020-07-08 05:26 | NUR ---
PT RESTING NOTIFIED DR. HIDALGO OF PT HAVING CHEST PAIN ANXIOUS. TROPONIN AND POTASIUM LEVEL THIS AM WILL REDRAW HIS POTASSIUM AGAIN. MORPHINE ORDERED AND PT RESTING THIS AM. EKG DONE TO AND REPORTED TO PHYSICAIAN. WILL CONTINUE TO ASSESS AND MONITOR PT STATUS AT THIS TIME PER TAQUERIA.
--- NOTE | 2020-07-08 16:10 | 2DMMODE ---
[facility] [place] [address] 2 D/M-MODE ECHOCARDIOGRAM Name: ENE BUITRAGO Room #: 201-P ADM IN M.R.#: [id number] Admission: 07/07/20 Attend Phys: Kirk Quinn MD Discharge: Date of : 31 Report #: [id number] THIS REPORT FOR: cc: FAM - Family physician unknown FAM - Family physician unknown Manoj Ann MD ~ APPROVED REPORT Study performed: 07/08/2020 08:40:10 EXAM: Comprehensive 2D, Doppler, and color-flow Echocardiogram Patient Location: In-Patient Room #: 201 BSA: 1.91 HR: 66 bpm BP: 112/57 mmHg Other Information Study Quality: Adequate Risk Factors: Cardiac Risk Factors: FHX of CAD Indications CAD Elevated Troponin 2D Dimensions IVSd: 9.36 (7-11mm) LVOT Diam: 22.92 (18-24mm) LVDd: 38.07 mm PWd: 8.54 (7-11mm) Ascending Ao: 28.30 (22-36mm) LVDs: 27.95 (25-40mm) Left Atrium: 36.87 (27-40mm) Aortic Root: 32.50 mm Volumes Left Atrial Volume (Systole) Single Plane 4CH: 25.85 mL Single Plane 2CH: 51.69 mL Aortic Valve AoV Peak Shayan.: 0.97 m/s AO Peak Gr.: 3.80 mmHg LVOT Max P.86 mmHg LVOT Max V: 0.68 m/s [facility] [place] [address] 2 D/M-MODE ECHOCARDIOGRAM Name: IFTIKHARENE Room #: 201-P [facility] IN M.R.#: [id number] Admission: 07/07/20 Attend Phys: Kirk Quinn MD Discharge: Date of : 31 Report #: [id number] [place] Vmax: 2.89 cm2 Mitral Valve MV Peak Gr.: 3.58 mmHg MV Mean Gr.: 1.40 mmHg E/A Ratio: 1.3 MV Decel. Time: 242.58 ms MV E Max Shayan.: 0.73 m/s MV A Shayan.: 0.57 m/s MV Max Shayan.: 0.95 m/s MV Mean Shayan.: 0.54 m/s MV VTI: 319.30 mm MV PHT: 70.35 ms MVA (PHT): 2.35 cm2 IVRT: 110.73 ms Pulmonary Valve PV Peak Shayan.: 1.98 m/s PV Peak Gr.: 15.73 mmHg Pulmonary Vein P Vein S: 0.67 m/s P Vein A: 0.41 m/s P Vein D: 0.35 m/s P Vein A Dur.: 143.0 msec P Vein S/D Ratio: 1.91 Tricuspid Valve TR Peak Shayan.: 1.74 m/s TR Peak Gr.: 12.09 mmHg Left Ventricle Left ventricle is grossly normal size. No regional wall motion abnormalities noted. There is normal left ventricular wall thickness. The left ventricular systolic function is normal. The left ventricular ejection fraction is within the normal range. LVEF is 55-60%. Right Ventricle The right ventricle is normal size. The right ventricular systolic function is normal. Atria The left atrium size is normal. The right atrium size is normal. Aortic Valve The aortic valve is normal in structure. No aortic regurgitation is present. There is no aortic valvular stenosis. There is normal aortic valve excursion. [facility] [address] [place] [address] 2 D/M-MODE ECHOCARDIOGRAM Name: ENE BUITRAGO Room #: 201-P ADM IN .R.#: [id number] Admission: 07/07/20 Attend Phys: Kirk Quinn MD Discharge: Date of : 31 Report #: [id number] Mitral Valve The mitral valve is normal in structure. Trace mitral regurgitation. No evidence of mitral valve stenosis. Tricuspid Valve The tricuspid valve is normal in structure. Trace tricuspid regurgitation. Pulmonic Valve The pulmonary valve is normal in structure. There is no pulmonic valvular regurgitation. Great Vessels The aortic root is normal in size. IVC is not well visualized. Pericardium There is no pericardial effusion. <Conclusion> No evidence of mitral valve stenosis. Left ventricle is grossly normal size. LVEF is 55-60%. No regional wall motion abnormalities noted. The aortic valve is normal in structure. No aortic regurgitation is present. There is no aortic valvular stenosis. There is normal aortic valve excursion. The mitral valve is normal in structure. Trace mitral regurgitation. The tricuspid valve is normal in structure. Trace tricuspid regurgitation. Trace tricuspid regurgitation. The pulmonary valve is normal in structure. There is no pericardial effusion. <ELECTRONICALLY SIGNED> By: Manoj Ann MD 07/08/20 1610 161 161 Manoj Ann MD /INF
--- NOTE | 2020-07-08 19:46 | NUR ---
ASSUMMED PT CARE AT APPROXIMATELY 0700. PT A&O X3. HX OF DEMENTIA. ASSESSMENT CHARTED. FALL PRECAUTIONS IN PLACE. PT DENIES HAVING CHEST PAIN. PT DENIES HAVING SOB. EDUCATED PT AND PT'S FAMILY ABOUT POC. PT AND PT'S FAMILY STATED UNDERSTANDING AND DENIED HAVING FURTHER CONCERNS. VITAL SIGNS STABLE. BLOOD SUGARS STABLE. PT POST CATH. R GROIN C/D/I. NO HEMATOMA. PT COMFORTABLE. PT AMBULATES STEADY POST BEDREST. PT DENIES HAVING FURTHER CONCERNS.
[2020-07-09 04:44] VITALS: BP 126/71
[2020-07-09 05:36] LABS: GLYCOHEMOGLOBIN (HGB A1C) 8.5 % (4.8-5.6)
[2020-07-09 07:21] VITALS: BP 128/70
--- NOTE | 2020-07-09 07:50 | NUR ---
ASSESSMENTS CHARTED, MEDS CHARTED GIVEN. PATIENT CONFUSED DURING NIGHT, EASILY REDIRECTED. OFF BEDREST AT START OF SHIFT. RIGHT GROIN SITE CLEAN, DRY SOFT. NO INTERVENTIONS WERE DONE. PLAN IS FOR MEDICAL MANAGEMENT. FALL PRECAUTIONS IN PLACE DURING SHIFT.
[2020-07-09 09:44] LABS: CALCIUM 9.1 mg/dL (8.5-10.1); CREATININE 2.1 mg/dL (0.7-1.3); POTASSIUM 4.8 mmol/L (3.5-5.1)
[2020-07-09 11:04] VITALS: BP 108/63
--- NOTE | 2020-07-09 11:09 | NUR ---
CARE ASSUMED AT 0700, PT ALERT AND ORIENTED X2, DISORIENTED TO TIME. PT CONFUSE AND FORGETFUL AT TIMES. TEARFUL WELL. DENIES ANY PAIN, NAUSEA AND VOMITTING. FALL PRECAUTIONS IN PLACE DUE TO PT BEING IMPULSIVE. ONETIME ATIVAN GIVEN PER DR. SU ORDERS. BED ALARM ON. WILL CONTINUE TO MONITOR 1040 PT SON CALLED, UPDATED ABOUT PT CARE.
--- NOTE | 2020-07-09 12:56 | NUR ---
DISCUSSION WITH JAY/RN REGARDING CONCERN FOR POSSIBLE HELP NEEDED WHEN PATIENT RETURNS HOME. OT & PT CONSULTED ON 07/07/20.
[2020-07-09 15:54] VITALS: BP 122/62
[2020-07-09 20:09] VITALS: BP 100/51
[2020-07-09 20:10] VITALS: BP 105/55
[2020-07-10 00:10] VITALS: BP 117/63
[2020-07-10 03:31] LABS: HEMATOCRIT 39.7 % (42.0-52.0); MCH 28.5 pg (26.0-34.0); MCHC 32.7 g/dL (28.0-37.0); MCV 87.2 fL (80.0-100.0); RBC 4.55 mil/uL (4.50-6.00); RDW 15.8 % (10.5-14.5)
[2020-07-10 03:44] LABS: ALBUMIN 3.4 g/dL (3.4-5.0); CALCIUM 8.9 mg/dL (8.5-10.1); CREATININE 2.1 mg/dL (0.7-1.3); PHOSPHORUS 3.1 mg/dL (2.6-4.7); POTASSIUM 3.8 mmol/L (3.5-5.1)
--- NOTE | 2020-07-10 04:22 | NUR ---
PT IS ALERT TO SELF AND SITUATION CONFUSED AT TIME HISTORY OF DEMENTIA. LUNGS ARE CLEAR ON ROOM AIR. ABDOMEN IS ROUND AND SOFT. RIGHT GROIN SITE CLEAN DRY AND INTACT. NO HEMATOMA. DENIES ANY PAIN. UP TO BATHROOM WITH ASSISTANCE TO AMBULATED WITH STAND BY. CALL LIGHT WTIHIN REACH IF NEEDS ASSISTANCE PER NURSING.
[2020-07-10 04:28] VITALS: BP 133/63
--- NOTE | 2020-07-10 07:23 | EKG ---
[address] [place] [address] ELECTROCARDIOGRAM REPORT Name: ENE BUITRAGO Room #: 201-P ADM IN M.R.#: [id number] Admission: 07/07/20 Attend Phys: Kirk Quinn MD Discharge: Date of : 31 Report #: [id number] [facility] ED Test Date: 2020-07-07 Test Time: 20:53:44 Pat Name: ENE BUITRAGO Department: Room: 201 P Gender: M Diver Helper: mpark : 1930 Requested By: Kirk Quinn Order Number: [id number] : Robert Pacheco Measurements Intervals [place] Rate: 63 P: 61 VT: 190 QRS: -64 QRSD: 136 T: 9 QT: 474 QTc: 486 Interpretive Statements Sinus rhythm Right bundle branch block Probable anterior infarct, old Compared to ECG 07/07/2020 19:50:10 Myocardial infarct finding now present Left anterior fascicular block no longer present Electronically Signed On 07-10-2020 7:23:18 GUEST SERVICES AGENT by Robert Pacheco [email or web address] <ELECTRONICALLY SIGNED> By: Robert Pacheco MD, [facility] 07/10/20722 52 52 Robert Pacheco MD, [facility] /EPI
--- NOTE | 2020-07-10 07:23 | EKG ---
[address] [place] [address] ELECTROCARDIOGRAM REPORT Name: EEN BUITRAGO Room #: 201-P ADM IN M.R.#: [id number] Admission: 07/07/20 Attend Phys: Kirk Quinn MD Discharge: Date of : 32 Report #: [id number] [facility] ED Test Date: 2020-07-07 Test Time: 19:50:10 Pat Name: ENE BUITRAGO Department: Room: 201 Gender: M Icu Registered Nurse: jose luis : 1930 Requested By: Trav Frank Order Number: [id number] MD: Robert Pacheco Measurements Intervals [place] Rate: 50 P: 40 AK: 183 QRS: -62 QRSD: 134 T: -25 QT: 504 QTc: 460 Interpretive Statements Sinus rhythm RBBB and LAFB Compared to ECG 06/06/2019 17:29:11 No significant changes Electronically Signed On 07-10-2020 7:22:53 [employer]LECT[employer]ODU[employer] SALES ENGINEER by Robert Pacheco [email or web address] <ELECTRONICALLY SIGNED> By: Robert Pacheco MD, [facility] 07/10/20 0722 1950 Vivienne Pacheco MD FACC /EPI
--- NOTE | 2020-07-10 07:24 | EKG ---
[place] [address] [facility] [place] [address] ELECTROCARDIOGRAM REPORT Name: ENE BUITRAGO Room #: 201-P ADM IN M.R.#: [id number] Admission: 07/07/20 Attend Phys: Kirk Quinn MD Discharge: Date of : 31 Report #: [id number] [facility] Test Date: 2020-07-08 Test Time: 04:45:51 Pat Name: ENE BUITRAGO Department: Room: 201 P Gender: M Director Heart: DICK : 1930 Requested By: Kenji Sheets Order Number: [id number] MD: Joshua Whiteside Measurements Intervals [place] Rate: 60 P: 54 IA: 180 QRS: -71 QRSD: 125 T: -22 QT: 453 QTc: 453 Interpretive Statements Sinus rhythm LAFB Incomplete left bundle branch block Compared to ECG 06/06/2019 17:29:11 No significant changes Electronically Signed On 07-10-2020 7:23:49 BODY [employer]ER by Joshua Whiteside [email or web address] <ELECTRONICALLY SIGNED> By: Joshua Whiteside MD, [facility] 07/10/20 0723 0445 0445 Joshua Whiteside MD, FACC /EPI
[2020-07-10 08:00] VITALS: BP 132/64
[2020-07-10 11:30] VITALS: BP 90/50
[2020-07-10] MEDS ORDERED: BAYER CHEWABLE81 MG PO (11:49)
[2020-07-10] MEDS ORDERED: IMDUR 30 MG TAB30 M1 PO (11:49)
[2020-07-10 13:34] VITALS: BP 132/64
--- NOTE | 2020-07-10 13:38 | NUR ---
Pt dcing home today with his spouse. HH orders noted and pt/spouse agreeable. Preference for [facility]. Dc finished goods planner to fax referral and confirm start care. Pt anxious to dc home today discussed at bedside.
--- NOTE | 2020-07-10 16:24 | NUR ---
07/10/20 PATIENT DISCHARGED HOME WITH HOME HEALTH. IV DISCONTINUED. ESCORTED PATIENT TO SONS CAR VIA WHEELCHAIR. PATIENT AND SON RASHEED EDUCATED WITH DISCHARGE PACKET. UPDATED VIA PHONE. ALL PATIENT CLOTHING AND SHOES SENT HOME WITH PATIENT.
--- NOTE | 2020-07-11 10:43 | NUR ---
FAXED RESUMPTION OF CARE ON MONDAY 07/10 DC ORDERSS/SUMMARY TO [facility] HH RECEIVED CONFIRMATION AND LEFT MSG WITH JAMES AT [facility],
--- NOTE | 2020-07-13 08:55 | NUR ---
Note Given: Y Facility List Provided:Y Facility Chorubio: None chosen at this time Uma Cerna DANCE CRITIC spoke with pt regarding BPCI on 07/10/20
--- NOTE | 2020-07-14 01:42 | CATHLAB ---
[facility] [place] [address] INVASIVE PROCEDURE REPORT Name: ENE BUITRAGO Room #: 201-P DIS IN M.R.#: [id number] Admission: 07/07/20 Attend Phys: Jossue Devine MD Discharge: 07/10/20 Date of : 31 Report #: [id number] THIS REPORT FOR: cc: JOSHUA - Family physician unknown JOSHUA - Family physician unknown Manoj Ann MD ~ APPROVED REPORT Study performed: 07/08/2020 11:08:17 Patient Details Patient Status: In-Patient Room #: The patient is a 89 year-old male Event Personnel Manoj Ann Broadcast Field Supervisor, Swathi Lujan RN RN, Hiral Keys RTR ScrubDewey Roberta Monitor Procedures Performed Art Access - R femoral artery* Left Heart Cath w/or w/o Coronaries [id number] [facility] [address] Initial Mod Sed Same Phys/QHP Gr5y 077539 73689 Mod Sed Same Phys/QHP Ea 621443 Hemostasis w/ Mynx,suoervision of conscious sedation Indication Non-STEMI (>12 hrs to = 24 hrs), Chest pain Procedure Narrative The Right Groin^ was infiltrated with 1% Lidocaine subcutaneous anesthesia. A PINNACLE 6FR Sheath #[id number] sheath was inserted into the RFA 6X11F^. Coronary angiography was performed using coronary diagnostic catheters. The right coronary system was accessed and visualized with a JR4 catheter. The left coronary system was accessed and visualized with a JL4 catheter. The patient tolerated the procedure well and there were no complications associated with the procedure. There was no hematoma. Intraoperative Conscious Sedation Sedation start time: 1207 Case end Time: 1245 Versed 2 mg Fluoro Time: 2.57 minutes Dose: DAP 2471.20 cGycm2 357 mGy [facility] [place] [address] INVASIVE PROCEDURE REPORT Name: IFTIKHARENE Room #: 201-P [facility] IN M.R.#: [id number] Admission: 07/07/20 Attend Phys: Jossue Devine, Discharge: 07/10/20 Date of : 31 Report #: [id number] Contrast Type and Amount: Omnipaque 40 ml Coronary Angiography The patient's coronary anatomy is right dominant. Diagnostic Cath Left Main Normal origin and moderate caliber which bifurcates into Left Antrior Descending and left Circumflex arteries. The LM is quite long with mild proximal and distal irregularities. No flow limiting lesions. LAD Small caliber diffusely diseased Type II vessel coarsing in the anterior interventricular sulcus. A first diagonal arises in its proximal segement which appears to be larger in diameter than LAD proper and is less than 2mm in diameter, The LAD taper with moderate lesions terminating as a string size vessel Diagonal 1 Small caliber vessel with proximal moderate lesions then totally occluded after its proximal third Diagonal 2 small insignificant vessel Circumflex Moderate caliber nondominant vessel with mild lesions proximally then a moderate caliber bifurcating matginal arises and Left Circumfles continues posteriorly in the AV groove as a small caliber terminal vessel. OM1 moderate caliber vessel with two bifurcating branches.these are less than 0.5mm in diameter with moderate diffuse disease. Right Coronary Large caliber dominant vessel of normal origin with mild irregularities in proximal and mid portions, afterwhich a small caliber PDA arises with patent prior stent. The distal RCA is a small caliber vessel with nonobstructive plaques Left Ventriculography Left Ventriculography was not performed. Hemodynamics The aortic pressure is 159/72 mmHg with a mean of 106 mmHg. The left ventricular pressure is 155/9 mmHg with a mean of mmHg. The left ventricular end diastolic pressure is 22 mmHg. Conclusion 1. Coronary artery disease severe LAD with totally occluded proximal D1 and moderate to severe diffuse LCx 2. Abnormal Hemodynamics with elevated LVEDP [facility] [address] [place] [address] INVASIVE PROCEDURE REPORT Name: IFTIKHARENE Room #: 201-P [facility] IN M.R.#: [id number] Admission: 07/07/20 Attend Phys: Jossue Devine, Discharge: 07/10/20 Date of : 31 Report #: [id number] Recommendations [facility] <ELECTRONICALLY SIGNED> By: Manoj Ann MD 07/14/20140 0 0 Manoj Ann MD /INF
== END 2020-07-10 15:03 | disposition home health service (06) | DRG 281 ==
LOC: ER 19:34 → 2N 21:43 → EROBS 21:43 → 2N 22:00
PROVIDERS: Emergency Medicine; Hospitalist; Internal Medicine; Nurse Practitioner Family; ADMIT Internal Medicine; ATTEND Internal Medicine
PROC: 4A023N7 Measurement of Cardiac Sampling and Pressure, Left Heart, Percutaneous Approach (ICD-10-PCS; principal; 2020-07-08)
PROC: B2111ZZ Fluoroscopy of Multiple Coronary Arteries using Low Osmolar Contrast (ICD-10-PCS; principal; 2020-07-08)
DX: I21.4 Non-ST elevation (NSTEMI) myocardial infarction (principal); N17.9 Acute kidney failure, unspecified; F03.91 Unspecified dementia, unspecified severity, with behavioral disturbance; N18.4 Chronic kidney disease, stage 4 (severe); G89.29 Other chronic pain; E78.5 Hyperlipidemia, unspecified; K21.9 Gastro-esophageal reflux disease without esophagitis; M54.9 Dorsalgia, unspecified; I25.110 Atherosclerotic heart disease of native coronary artery with unstable angina pectoris; F32.9 Major depressive disorder, single episode, unspecified; N40.0 Benign prostatic hyperplasia without lower urinary tract symptoms; I12.9 Hypertensive chronic kidney disease with stage 1 through stage 4 chronic kidney disease, or unspecified chronic kidney disease; E11.22 Type 2 diabetes mellitus with diabetic chronic kidney disease; R53.81 Other malaise; Z20.822 Contact with and (suspected) exposure to COVID-19; Z96.652 Presence of left artificial knee joint; Z98.42 Cataract extraction status, left eye; Z98.41 Cataract extraction status, right eye; Z79.84 Long term (current) use of oral hypoglycemic drugs; Z79.01 Long term (current) use of anticoagulants; Z79.899 Other long term (current) drug therapy; Z88.8 Allergy status to other drugs, medicaments and biological substances
CPT/HCPCS: 10081

== ENCOUNTER 2020-10-14 21:59 | Observation (INO) | payer OTHER ==
[~2020-10-14] VITALS: Ht 175.3 cm; Wt 68.9 kg
[~2020-10-14 21:59] MED LIST changes: +BAYER CHEWABLE81 MG PO; +IMDUR 30 MG TAB30 M1 PO
[2020-10-14 22:00] VITALS: BP 174/88
[2020-10-14 22:40] LABS: ABSOLUTE NEUTROPHILS 4.6 thou/uL (1.4-8.2); BASOPHILS 0.7 % (0.0-2.0); EOSINOPHILS 1.8 % (0.0-3.0); HEMATOCRIT 46.6 % (42.0-52.0); HEMOGLOBIN 15.7 gm/dL (14.0-18.0); LYMPHOCYTES 28.7 % (24.0-44.0); MCHC 33.8 g/dL (28.0-37.0); MCV 85.8 fL (80.0-100.0); MONOCYTES 9.4 % (1.0-8.0); PLATELET COUNT 147 thou/uL (150-400); POLYS 59.4 % (36.0-66.0); RBC 5.43 mil/uL (4.50-6.00); RDW 15.8 % (10.5-14.5); WBC 7.7 thou/uL (4.0-11.0)
[2020-10-14 22:48] LABS: ANION GAP 11 mmol/L (7-16); BUN 29 mg/dL (7-18); CALCIUM 9.8 mg/dL (8.5-10.1); CHLORIDE 102 mmol/L (98-107); CO2 26 mmol/L (21-32); CREATININE 2.2 mg/dL (0.7-1.3); POTASSIUM 4.2 mmol/L (3.5-5.1); SODIUM 139 mmol/L (136-145)
[2020-10-14 22:49] LABS: GLUCOSE 213 mg/dL (74-106)
[2020-10-14 22:56] LABS: TROPONIN-I <0.06 ng/mL (<0.06)
[2020-10-15] VITALS (7 sets, daily range): BP systolic 117–174; BP diastolic 41–88
--- NOTE | 2020-10-15 00:11 | NUR ---
SON INFORMED OF ROOM NUMBER AND VISITING HOURS
[2020-10-15] MEDS ORDERED: SLEEP AID50 MG PO (01:04)
--- NOTE | 2020-10-15 03:57 | NUR ---
ADMIT PT ADMITTED TO ROOM 204 FROM ED FOR CHEST PAIN. PT A/O X3 BUT CONFUSED AND FORGETFUL. ORIENTED TO ROOM CALL LIGHT SYSTEM AND POC. PT IS A HIGH FALL RISK FALL PRECAUTIONS IN PLACE. UP WITH 1 GB AND WALKER. BELCHING AND C/O HEARTBURN. PT IMPULSIVE AND GETTING OOB WITHOUT CALLING REINFORCED FALL RISK PROTOCOL AND BED ALARM IN PLACE. CONTINUE TO MONITOR.
--- NOTE | 2020-10-15 08:18 | NUR ---
ASSUMED PT CARE AT 0700. AT 0730, PTS FALL ALARM WAS GOING OFF DUE TO PATIENT TRYING TO GET OUT OF BED, PT VOMITED X1, HAD 1 LOOSE STOOL. PT CLEANED UP, LINEN CHANGED. ZOFRAN PRN GIVEN TO HELP RELIEVE NAUSEA AND VOMITING. ASSESSMENT PERFORMED CHARTED. VSS. WILL CONTINUE TO MONITOR AND FOLLOW POC.
[2020-10-15 08:47] LABS: CHOLESTEROL 302 mg/dL (<200); HDL CHOLESTEROL 33 mg/dL (>40); TC:HDL 9.2 Ratio (Not establshd); TRIGLYCERIDE 585 mg/dL (<150); TROPONIN-I <0.06 ng/mL (<0.06); VLDL 117 mg/dL (<40)
--- NOTE | 2020-10-15 11:44 | NUR ---
PT ATTEMPTING TO DRINK ORAL CONTRAST. PT ENCOURAGED TO KEEP DRINKING. VSS. WILL CONTINUE TO MONITOR AND FOLLOW POC.
--- NOTE | 2020-10-15 15:34 | NUR ---
PT RESTING. PT HAS NOT HAD A LIQUID BOWEL MOVEMENT SINCE 0800 THIS MORNING. PT STATES HE STILL DOES NOT HAVE AN APPETITE OR FEELS LIKE DRINKING. PT HAS NOT VOMITED SINCE 0800 THIS MORNING WELL. IV FLUIDS STARTED ON PATIENT. VSS. WILL CONTINUE TO MONITOR AND FOLLOW POC.
[2020-10-16 02:05] LABS: GLYCOHEMOGLOBIN (HGB A1C) 8.2 % (4.8-5.6)
[2020-10-16 03:40] LABS: HEMATOCRIT 43.8 % (42.0-52.0); HEMOGLOBIN 14.6 gm/dL (14.0-18.0); MCHC 33.3 g/dL (28.0-37.0); MCV 86.9 fL (80.0-100.0); RBC 5.04 mil/uL (4.50-6.00); RDW 15.7 % (10.5-14.5); WBC 8.2 thou/uL (4.0-11.0)
[2020-10-16 03:48] LABS: CALCIUM 9.1 mg/dL (8.5-10.1); CREATININE 1.8 mg/dL (0.7-1.3); POTASSIUM 3.8 mmol/L (3.5-5.1)
--- NOTE | 2020-10-16 03:54 | NUR ---
ASSESSMENT DOCUMENTED.PT A/OX1,CONFUSED AND VERY FORGETFUL.FOLLOWS SIMPLE COMMANDS APPROPRIATELY.DENIES PAIN.URINATE VIA URINAL W/ASSIST.NO BM OR LOOSE STOOL THIS SHIFT SO FAR.DENIES CHEST PAIN.ABD PAIN,NAUSEA OR VOMITING.
[2020-10-16 04:16] VITALS: BP 154/70
[2020-10-16 07:30] VITALS: BP 130/59
[2020-10-16] MEDS ORDERED: METOPROLOL SUCC25 M1 PO (08:19)
[2020-10-16] MEDS ORDERED: IMDUR 30 MG TAB30 M1 PO (08:19)
--- NOTE | 2020-10-16 08:39 | EKG ---
[place] [address] [facility] [place] [address] ELECTROCARDIOGRAM REPORT Name: ENE BUITRAGO Room #: 204-P [facility] M.R.#: [id number] Admission: 10/14/20 Attend Phys: Kirk Quinn MD Discharge: Date of : 31 Report #: [id number] [facility] ED Test Date: 2020-10-14 Test Time: 22:06:15 Pat Name: ENE BUITRAGO Department: Room: 204 Gender: M Financial Project Manager: : 1930 Requested By: Mando Nix Order Number: [id number] MD: Joshua Whiteside Measurements Intervals [place] Rate: 79 P: 14 NE: 180 QRS: -79 QRSD: 127 T: 82 QT: 409 QTc: 469 Interpretive Statements Sinus rhythm RBBB and LAFB Compared to ECG 07/08/2020 04:45:51 Right bundle-branch block now present Electronically Signed On 10-16-2020 8:39:39 CDT by Joshua Whiteside [email or web address] <ELECTRONICALLY SIGNED> By: Joshua Whiteside MD, [facility] 10/16/20 0839 2205 05 Joshua Whiteside MD, FACC /EPI
--- NOTE | 2020-10-16 08:42 | EKG ---
[place] [address] [facility] [place] [address] ELECTROCARDIOGRAM REPORT Name: ENE BUITRAGO Room #: 204-[facility] M.R.#: [id number] Admission: 10/14/20 Attend Phys: Kirk Quinn MD Discharge: Date of : 31 Report #: [id number] [facility] Test Date: 2020-10-15 Test Time: 07:57:39 Pat Name: ENE BUITRAGO Department: Room: 204 P Gender: M Supervisor Plate Forming: LESLIE : 1930 Requested By: Windy Awan Order Number: [id number] MD: Joshua Whiteside Measurements Intervals [place] Rate: 81 P: 47 AR: 177 QRS: -80 QRSD: 131 T: 71 QT: 420 QTc: 488 Interpretive Statements Sinus rhythm Right bundle branch block and left anterior hemiblock Anterior infarct, old Compared to ECG 07/08/2020 04:45:51 No significant change was found Electronically Signed On 10-16-2020 8:42:30 CDT by Joshua Whiteside [email or web address] <ELECTRONICALLY SIGNED> By: Joshua Whiteside MD, [facility] 10/16/20 0842 0757 0757 Joshua Whiteside MD, [facility] /EPI
--- NOTE | 2020-10-16 09:02 | NUR ---
ASSUMED PT CARE AT 0700. PT IN BED SLEEPING AT THAT TIME. 0830, ASSESSMENT PERFORMED CHARTED. PT MOVED FROM BED TO CHAIR TO HELP WITH ANXIETY. PT STATES HE FEELS RELIEF TO GET OUT OF BED. PT REFUSES BREAKFAST, OFFERED OPTIONS FROM [facility], PT STILL REFUSED. VSS. WILL CONTINUE TO MONITOR AND FOLLOW POC.
[2020-10-16 11:27] VITALS: BP 130/59
[2020-10-16 11:35] VITALS: BP 99/51
--- NOTE | 2020-10-16 12:33 | HC ---
[facility] [place] [address] CONSULTATION Name: ENE BUITRAGO Room #: 204-P [facility] M..#: [id number] Admission: 10/14/20 Attend Phys: Kirk Quinn MD Discharge: Date of : 31 Report #: [id number] THIS REPORT FOR: cc: FAM - Family physician unknown FAM - Family physician unknown Sarkis Olea MD ~ DOC #: [id number] Sarkis Olea MD DATE OF SERVICE: 10/15/2020 CARDIOLOGY CONSULTATION INDICATION: Chest pain. HISTORY OF PRESENT ILLNESS: This is an 89-year-old gentleman with a history of CAD, stent, TN, dementia, chronic kidney disease, diabetes mellitus, hypertension and hypercholesterolemia, presenting with chest pain. The patient has underlying dementia and his history is limited. He reports having discomfort in the substernal area, nonradiating. Unable to tell me how long it has been present. He does report that it is exacerbated with deep inspiration. There is no change with palpation over the area. He was here in July of 2020 with a non-ST elevation TN. Cardiac catheterization at that time revealed total occlusion in a dual LAD system. The LAD supplying the diagonal arteries was occluded. Medical therapy was recommended. He has a previous right posterolateral stent. PAST MEDICAL HISTORY: CAD/stent. Dementia, hypertension, chronic kidney disease, diabetes mellitus. ALLERGIES: STATINS. MEDICATIONS: Include aspirin, metoprolol, Imdur, Repatha, glimepiride. SOCIAL HISTORY: Negative for tobacco use. Lives with his . FAMILY HISTORY: Unobtainable. REVIEW OF SYSTEMS: Unobtainable. PHYSICAL EXAMINATION: VITAL SIGNS: Blood pressure is 120/70, heart rate is 80 beats per minute. GENERAL: An elderly appearing male in no acute distress. HEENT: Normocephalic, atraumatic. Oral mucosa moist. NECK: Supple. LUNGS: CTA. [facility] [address] [place] [address] CONSULTATION Name: ENE BUITRAGO Room #: 204-P [facility] Irma Barone#: [id number] Admission: 10/14/20 Attend Phys: Kirk Quinn MD Discharge: Date of : 31 Report #: [id number] HEART: Regular rate and rhythm, S1, S2 positive. ABDOMEN: Soft, nontender. EXTREMITIES: No cyanosis, trace edema. DIAGNOSTIC STUDIES: ECG reveals sinus rhythm, right bundle branch block, previous anteroseptal TN. LABORATORY VALUES: Troponin is negative x3, creatinine is 2.2. White count is 7.7, hemoglobin is 15.7. ASSESSMENT AND PLAN: 1. Chest pain syndrome, three sets of troponin levels are negative and there are no acute ST segment changes on the electrocardiogram. The patient reports exacerbation with deep inspiration, may be pericarditic versus musculoskeletal. Doubt ischemia related. We will follow up with Dr. Whiteside in the morning. 2. Coronary artery disease/myocardial infarction, continue on aspirin. 3. Hypercholesterolemia, intolerant to statins. Continue with Repatha. 4. Hypertension: Continue home medications including the beta gerardo. 5. Dementia. Sarkis Olea MD JP/KYRA <ELECTRONICALLY SIGNED> By: Sarkis Olea MD 10/16/20 1233 1051 55 Sarkis Olea MD /nt
[2020-10-16 13:27] VITALS: BP 130/59
--- NOTE | 2020-10-16 13:29 | NUR ---
Patient to dc home today. Therapy worked with patient and reports home with HH and 23/12 supervision. Sp with patient who is agreeable to home with HH today. RN reports patient confused in hospital. Sp with . She reports patient is confused. She administers medication and assists patient. is agreeable to home health care and reports uses [facility] in past. Faxed referral to [facility] and they report they do not have RN who can visit until Friday and PT not until Friday. agreeable she reports she has [facility] for herself and prefers not to have different people coming in home from different company. Faxed final orders to [facility]. reports she cannot transport patient with rain and weather. Arranged wc van for 1400 via [employer]. Verified address. no further needs.
--- NOTE | 2020-10-16 14:00 | NUR ---
DISCHARGE INSTRUCTIONS GIVEN OVER THE PHONE TO DUE TO PATIENTS HISTORY OF DEMENTIA.
== END 2020-10-16 14:55 | disposition home health service (06) ==
LOC: ER 21:59 → EROBS 23:17 → 2N 23:17
PROVIDERS: Emergency Medicine; Internal Medicine; Nurse Practitioner Acute Care; ADMIT Hospitalist; ATTEND Hospitalist
DX: R07.89 Other chest pain (principal); Z20.822 Contact with and (suspected) exposure to COVID-19; K52.9 Noninfective gastroenteritis and colitis, unspecified; E78.5 Hyperlipidemia, unspecified; K21.9 Gastro-esophageal reflux disease without esophagitis; E11.22 Type 2 diabetes mellitus with diabetic chronic kidney disease; N18.30 Chronic kidney disease, stage 3 unspecified; G89.29 Other chronic pain; N40.0 Benign prostatic hyperplasia without lower urinary tract symptoms; F03.90 Unspecified dementia, unspecified severity, without behavioral disturbance, psychotic disturbance, mood disturbance, and anxiety; Z79.899 Other long term (current) drug therapy; Z88.8 Allergy status to other drugs, medicaments and biological substances

== ENCOUNTER → 2020-11-22 | Outpatient (CLI) | payer OTHER ==
[~2020-11-22] MED LIST changes: +SLEEP AID50 MG PO
== END ==
LOC: SJCVC 16:28
PROVIDERS: ATTEND Internal Medicine
DX: R94.31 Abnormal electrocardiogram [ECG] [EKG] (principal); I45.4 Nonspecific intraventricular block; I25.10 Atherosclerotic heart disease of native coronary artery without angina pectoris; E78.5 Hyperlipidemia, unspecified; E11.22 Type 2 diabetes mellitus with diabetic chronic kidney disease; I12.9 Hypertensive chronic kidney disease with stage 1 through stage 4 chronic kidney disease, or unspecified chronic kidney disease; N18.32 Chronic kidney disease, stage 3b; I25.2 Old myocardial infarction; N40.0 Benign prostatic hyperplasia without lower urinary tract symptoms; G89.29 Other chronic pain; K21.9 Gastro-esophageal reflux disease without esophagitis; Z95.5 Presence of coronary angioplasty implant and graft; Z88.8 Allergy status to other drugs, medicaments and biological substances; Z79.899 Other long term (current) drug therapy; Z87.891 Personal history of nicotine dependence